=== PATIENT | male | born 2000 | race Two or more races ===

== ENCOUNTER 2024-04-17 03:48 | Emergency (ER) | payer BC ==
[2024-04-17 04:47] LABS: CORONAVIRUS COVID-19 NAA NEGATIVE (NEGATIVE); INFLUENZA A NAA NEGATIVE (NEGATIVE); INFLUENZA B NAA NEGATIVE (NEGATIVE); RESPIRATORY SYNCYTIAL VIR NAA NEGATIVE (NEGATIVE)
== END 2024-04-17 04:21 | disposition home or self-care (01) ==
LOC: MW.ED 03:48
DX: R09.81 Nasal congestion (principal); J02.9 Acute pharyngitis, unspecified; R05.9 Cough, unspecified; Z20.822 Contact with and (suspected) exposure to COVID-19
CPT/HCPCS: 0241U; 87651; 99283

== ENCOUNTER 2024-05-29 16:06 | Emergency (ER) | payer SELFPAY | END 2024-05-29 16:47 | disposition home or self-care (01) | LOC: MW.ED 16:06 | DX: Z76.0 Encounter for issue of repeat prescription (principal); J45.20 Mild intermittent asthma, uncomplicated; F17.210 Nicotine dependence, cigarettes, uncomplicated; Z79.899 Other long term (current) drug therapy; Z75.8 Other problems related to medical facilities and other health care | CPT/HCPCS: 99281 ==